=== PATIENT | female | born 1965 | race Caucasian/White ===

== ENCOUNTER → 2016-09-03 | Outpatient (CLI) | payer BC, OTHER ==
[~2016-09-03] MED LIST: ATEN-173 PO; CLON0.5T3 PO; CLTP PO; CPR500 PO; CYM30 PO; DLC5 PO; FLV1 PO; FRC PO; MILK THISTLE PO; MULT-506 PO; ONDA4TAB46 PO; krill oil PO
[2016-09-03 10:53] LABS: CHOLESTEROL/HDL RATIO 2.6
== END | disposition home or self-care (01) ==
LOC: C.LAB1850 08:50
PROVIDERS: ATTEND Internal Medicine Cardiovascular Disease
DX: E78.5 Hyperlipidemia, unspecified (principal)